=== PATIENT | female | born 1980 | race Caucasian/White ===

== ENCOUNTER 2018-04-27 16:16 | Emergency (ER) | payer BC, OTHER ==
[~2018-04-27] VITALS: Ht 170.2 cm; Wt 97.7 kg
[2018-04-27 16:19] VITALS: Ht 170.2 cm; Wt 97.7 kg
[2018-04-27] MEDS ORDERED: KLONOPIN0.5 MG (16:23)
[2018-04-27] MEDS ORDERED: UNITHROID150 MCG PO (16:24)
[2018-04-27] MEDS ORDERED: BUSPAR5 MG (16:24)
[2018-04-27 17:07] VITALS: BP 114/65
== END 2018-04-27 17:09 | disposition home or self-care (01) ==
LOC: D.ER 16:16
DX: F41.9 Anxiety disorder, unspecified (principal); E03.9 Hypothyroidism, unspecified; F17.200 Nicotine dependence, unspecified, uncomplicated

== ENCOUNTER 2019-10-25 12:52 | Inpatient (IN) | payer MEDICAID ==
[~2019-10-25] VITALS: Ht 170.2 cm; Wt 100.6 kg
[2019-10-25 13:52] LABS: BASOPHILS 0.5 % (0-2); EOSINOPHILS 2.2 % (0-7); HEMATOCRIT 28.6 % (36.0-48.0); HEMOGLOBIN 9.3 g/dL (12-16); IMMATURE GRANULOCYTES 3.8 % (0-5); LYMPHOCYTES 11.9 % (15-50); MCH 27.7 pg (26.0-34.0); MCHC 32.5 g/dL (31.0-37.0); MCV 85.1 fL (80.0-100.0); MEAN PLATELET VOLUME 8.9 fL (7.4-10.4); MONOCYTES 9.3 % (2-11); NEUTROPHILS 72.3 % (40-80); PLATELET COUNT 638 10x3/uL (130-400); RBC 3.36 10x6/uL (4.00-5.40); RDW 16.3 % (11.5-14.5); WBC 12.3 10x3/uL (4.8-10.8)
[2019-10-25 14:08] LABS: CALC OSMOLALITY 273 mosm/kg (275-300); CALCIUM 8.6 mg/dL (8.5-10.1); CARBON DIOXIDE 29.8 mmol/L (21.0-32.0); CHLORIDE - SERUM 101 mmol/L (98-107); CREATININE - SERUM 1.4 mg/dL (0.6-1.3); GLUCOSE 102 mg/dL (74-106); POTASSIUM - SERUM 3.3 mmol/L (3.5-5.1); SODIUM 138 mmol/L (136-145); UREA NITROGEN 8 mg/dL (7-18); eGFR NON AFRICAN AMERICAN 44 mL/min (90-120)
[2019-10-25 14:16] LABS: INR 1.1 (0.85-1.17); PROTIME 14.1 SECONDS (11.6-15.0)
[2019-10-25 14:17] LABS: APTT 32.3 SECONDS (22.8-39.4)
[2019-10-25 14:25] LABS: D-DIMER-QUANTITATIVE 6.61 ug/mLFEU (0.20-0.54)
[2019-10-25 14:26] LABS: ALKALINE PHOSPHATASE 79 U/L (30-120); ALT (SGPT) 11 U/L (10-68); BILIRUBIN - TOTAL 0.37 mg/dL (0.2-1.3); CKMB 1.6 U/L (0.0-3.6); CREATINE KINASE 85 UL (21-215); PRO BNP 4313 pg/mL (0-125); PROTEIN - SERUM 6.9 g/dL (6.4-8.2); TROPONIN-I < 0.017 ng/mL (0.000-0.060)
--- NOTE | 2019-10-25 18:51 | NUR ---
PT ZRRIVED TO FLOOR VIA WHEELCHAIR A/O X4. NO S/S OF DISTRESS. VSS. BED LOW CALL LIGHT WITHIN REACH. WILL CONTINUE TO MONITOR.
--- NOTE | 2019-10-25 19:15 | NUR ---
PATIENT ALERT AND ORIENTED. ANSWERES QUESTIONS APPROPRIATELY. WEARING GLASSES. PERRLA BILATERALLY. REFUSING LOVENOX IN ER. PROVIDED EDUCATION OF IMPORTANCE OF LOVENOX. PATIENT STATES "OKAY I DIDN'T KNOW THAT I WILL START IT TOMORROW." LUNGS CLEAR TO AUSCULTATION. LLQ COLOSTOMY WITH THIN BROWN STOOL IN BAG. HYPERACTIVE BOWEL SOUNDS X 3. PATIENT HAS 22G IV IN THE RIGHT WRIST THAT IS SALINE LOCKED AT THIS TIME. PROVIDED SCD'S PER ORDER. PROVIDED [place] HAT AND INSTRUCTED PATIENT ON NEED OF URINE SAMPLE, PATIENT VERBALIZES UNDERSTANDING. PATIENT HAS MIDLINE INCISION TO ABDOMEN THAT HAS A STAPLE THAT IS MISSING TO LOWER PORTION AND DRESSING THIN WHITE DISCHARGE. PATIENT INCISION LEFT OPEN TO AIR. APPEARS TO BE HEALING WITH SOME REDNESS NOTED AT THE INCISION SITE. PATIENT HAND EXPLOSIVE OPERATOR BOMB STRONG AND EQUAL. FOOT PUMPS STRONG AND EQUAL. PATIENT HAS GENERALIZED EDEMA IN BILATERAL UPPER EXTREMETIES AND 2+ PITTING EDEMA IN THE LOWER EXTREMETIES. PATIENT STATES DURING ASSESSMENT "MY FEET ACTUALLY LOOK SO MUCH BETTER." PATIENT STATES SHE HAS PAIN TO HER BACK AND ABDOMEN. SHE AMBULATES SAFELY BUT REQUIRES PARTIAL ASSISTANCE SHE IS SORE WHEN SITTING UP AT BEDSIDE DUE TO ABDOMINAL INCISION. INSTRUCTED PATIENT ON USE OF PILLOW SPLINTING. PATIENT PROVIDES RETURN DEMONSTRATION. INCENTIVE SPIROMETER PROVIDED TO PATIENT WITH TEACHING ON HOW TO USE EFFECTIVELY AND EDUCATED PATIENT TO USE 10X PER HOUR. PATIENT PROVIEDS RETURN DEMONSTRATION. DENIES FURTHER NEEDS AT THIS TIME. HAS CALL LIGHT IN REACH. CPOC.
[2019-10-25 20:27] LABS: SPECIFIC GRAVITY 1.005 (1.005-1.020)
[2019-10-25 20:28] LABS: BILIRUBIN NEGATIVE (NEGATIVE); GLUCOSE NEGATIVE (NEGATIVE); KETONE NEGATIVE (NEGATIVE); NITRITE NEGATIVE (NEGATIVE); UROBILINOGEN NORMAL (NORMAL)
--- NOTE | 2019-10-25 21:25 | NUR ---
PROVIDED TYLENOL AND ZOFRAN FOR COMPLAINTS OF BACK PAIN. ADMINISTERED SAFELY. PATIENT DENIES FURTHER NEEDS AT THIS TIME. CPOC.
--- NOTE | 2019-10-26 00:50 | NUR ---
PATIENT CRYING WHEN ENTERING THE ROOM. PATIENT STATES PAIN IS TO HER BACK. ASSESSED BLOOD PRESSURE MANUALLY, 117/70. ADMINISTERED MORPHINE TO THE RIGHT WRIST IV. PATIENT TOLERATED WELL. CPOC.
--- NOTE | 2019-10-26 01:32 | NUR ---
PATIENT STATES "I FEEL SO MUCH BETTER." PATIENT NOT CRYING, CALM, EVEN, AND UNLABORED RESPIRATIONS. MORPHINE EFEFECTIVE AT THIS TIME. CPOC.
[2019-10-26 05:03] LABS: EOSINOPHILS 3.6 % (0-7); HEMATOCRIT 27.4 % (36.0-48.0); HEMOGLOBIN 8.6 g/dL (12-16); IMMATURE GRANULOCYTES 4.1 % (0-5); MCH 26.6 pg (26.0-34.0); MCHC 31.4 g/dL (31.0-37.0); MCV 84.8 fL (80.0-100.0); MEAN PLATELET VOLUME 9.6 fL (7.4-10.4); MONOCYTES 12.3 % (2-11); PLATELET COUNT 662 10x3/uL (130-400); RBC 3.23 10x6/uL (4.00-5.40); RDW 16.3 % (11.5-14.5); WBC 10.4 10x3/uL (4.8-10.8)
[2019-10-26 05:47] LABS: ALBUMIN 2.1 g/dL (3.4-5.0); BILIRUBIN - TOTAL 0.33 mg/dL (0.2-1.3); CALCIUM 8.5 mg/dL (8.5-10.1); CARBON DIOXIDE 34.3 mmol/L (21.0-32.0); CREATININE - SERUM 1.4 mg/dL (0.6-1.3); MAGNESIUM - SERUM 1.5 mg/dL (1.8-2.4); PHOSPHOROUS 5.1 mg/dL (2.5-4.9); PROTEIN - SERUM 6.6 g/dL (6.4-8.2)
[2019-10-26 05:48] LABS: ANION GAP 6.5 mmol/L (8-16); POTASSIUM - SERUM 3.8 mmol/L (3.5-5.1); THYROID STIMULATING HORMONE 81.23 uIU/mL (0.36-3.74)
[2019-10-26 17:08] LABS: IRON 60 ug/dl (35-150); UNSAT IRON BIND CAPACITY 94 ug/dl (150-375)
[2019-10-26 17:09] LABS: % SATURATION 39 % (15-55); TOTAL IRON BIND CAPACITY 154 ug/dl (260-445)
--- NOTE | 2019-10-26 19:10 | NUR ---
BEDSIDE REPORT RECEIVED FROM DAY SHIFT, PT CARE ASSUMED. INTRODUCED SELF AND WROTE NAME ON BOARD. PT SITTING UP IN BED TALKING ON THE PHONE, AAOX4. DENIES ANY NEEDS AT THIS TIME. BED IN LOWEST POSITION, SR X2, CALL LIGHT WITHIN REACH. WILL CONTINUE TO MONITOR.
[2019-10-27 06:00] LABS: BASOPHILS 0.6 % (0-2); EOSINOPHILS 3.2 % (0-7); HEMATOCRIT 27.6 % (36.0-48.0); HEMOGLOBIN 8.9 g/dL (12-16); IMMATURE GRANULOCYTES 2.5 % (0-5); LYMPHOCYTES 17.5 % (15-50); MCH 27.3 pg (26.0-34.0); MCHC 32.2 g/dL (31.0-37.0); MCV 84.7 fL (80.0-100.0); MEAN PLATELET VOLUME 9.4 fL (7.4-10.4); MONOCYTES 10.7 % (2-11); NEUTROPHILS 65.5 % (40-80); PLATELET COUNT 662 10x3/uL (130-400); RBC 3.26 10x6/uL (4.00-5.40); RDW 16.4 % (11.5-14.5); WBC 10.9 10x3/uL (4.8-10.8)
[2019-10-27 06:45] LABS: CALCIUM 8.7 mg/dL (8.5-10.1); CARBON DIOXIDE 33.6 mmol/L (21.0-32.0); CREATININE - SERUM 1.2 mg/dL (0.6-1.3); MAGNESIUM - SERUM 1.8 mg/dL (1.8-2.4); PHOSPHOROUS 4.3 mg/dL (2.5-4.9); POTASSIUM - SERUM 3.6 mmol/L (3.5-5.1)
--- NOTE | 2019-10-27 07:57 | NUR ---
PATIENT IS AWAKE AND ALERT. SHE DENIES ANY NEEDS NOW. THIS MORING FIRST THING SHE WAS REQUESTING PAIN MEDICINE. AFTER IT WAS GIVEN , SHE REPORTED RELIEF. WE ARE GOING TO COLLECT SOME STOOL , AND SHE IS AWARE. SHE HAS A COLOSTOMY BAG. THERE IS A LARGE INCISION THAT IS HEALING ON HER ABDOMEN. SHE IS SITTING UP IN BED AND EATTING BREAKFAST.
--- NOTE | 2019-10-27 11:54 | CN ---
PATIENT NAME:NICHO WHITING MEDICAL RECORD: [id number] : 80 LOCATION:D.M2 D.2108 ADMIT DATE: 10/25/19 ACCOUNT: [id number] CONSULTING PHYSICIAN: LITTLE BROWN MD REFERRING PHYSICIAN: SAMANTHA RUBIN DO DATE OF CONSULTATION: 10/26/2019 DIAGNOSES: 1. Lower extremity edema. 2. Recent abdominal surgery. HISTORY OF PRESENT ILLNESS: Mrs. Whiting presents with bilateral lower extremity edema. She recently underwent extensive valve surgery for an abscess, was discharged from our facility 10/23/2019, returned with the lower extremity edema. She had a colostomy and colon resection on 10/09/2019. She has had no shortness of breath, no chest pain, no cardiac problems in the past. PHYSICAL EXAMINATION: CONSTITUTIONAL/GENERAL APPEARANCE: Well nourished, well developed, appears stated age. EYES: Lids and conjunctivae noninjected. No discharge. No pallor. ENT: Lips within normal limit. No cyanosis. No pallor. NECK: Carotid arteries, bilateral normal upstroke. No bruits. No thrills. No jugular venous pressure or distention. CERVICAL LYMPH NODES: Nontender. Nonenlarged. THYROID: Not enlarged. No nodules. CARDIOVASCULAR: She does have a II/ holosystolic murmur at the left substernal border. RESPIRATORY: Respiratory effort, unlabored. Normal curvature. No thoracic deformity. No chest wall tenderness. Percussion, resonant. Auscultation, clear. No wheezes, no rales, no rhonchi. ABDOMEN: Soft, nondistended, nontender. No abdominal pain, no vomiting and normal appetite. MUSCULOSKELETAL: No joint tenderness, normal gait, normal tone. SKIN: Warm and dry. OVERALL IMPRESSION: Lower extremity edema, murmur. At this time, only cardiac workup needed is echocardiogram. Further care depends upon the results of the echocardiogram. TRANSINT:[id number] Voice Confirmation ID: [id number] DOCUMENT ID: [id number] LITTLE BROWN MD at 1154 CC: [id number] DICTATION DATE: 10/26/19 1147 STUDIO COUCH FRAME BUILDER: 10/26/19 1336 [place] [address]
--- NOTE | 2019-10-27 20:50 | NUR ---
EVENING ROUNDS COMPLETED. VSS, AAOX3, NO S/S OF RT DISTRESS. COLOSTOMY BAG INTACT. PT C/O LOWER BACK PAIN. PRN MORPHINE GIVEN. PT RESTING COMFORTABLY IN BED. DENIES ANY FURTHER NEEDS AT THIS TIME. WILL CTM. CL WITHIN REACH, BED IN LOW, SR UP X2.
--- NOTE | 2019-10-28 01:19 | NUR ---
OLD COLOSTOMY BAG REMOVED. STOMA SITE CLEANED. NEW COLOSTOMY BAG PLACED. NORCO GIVEN FOR PAIN ABD PAIN OF 7/10. PT RECIEVING A BED BATH AT THIS TIME. WILL CPOC. CL WITHIN REACH.
[2019-10-28 06:49] LABS: EOSINOPHILS 3.3 % (0-7); HEMATOCRIT 27.8 % (36.0-48.0); HEMOGLOBIN 8.7 g/dL (12-16); IMMATURE GRANULOCYTES 4.1 % (0-5); LYMPHOCYTES 26.7 % (15-50); MCH 26.6 pg (26.0-34.0); MCHC 31.3 g/dL (31.0-37.0); MONOCYTES 10.8 % (2-11); NEUTROPHILS 54.1 % (40-80); PLATELET COUNT 594 10x3/uL (130-400); RBC 3.27 10x6/uL (4.00-5.40); RDW 16.1 % (11.5-14.5); WBC 9.6 10x3/uL (4.8-10.8)
[2019-10-28 07:07] LABS: ANION GAP 6.5 mmol/L (8-16); CALCIUM 8.6 mg/dL (8.5-10.1); CARBON DIOXIDE 31.3 mmol/L (21.0-32.0); CREATININE - SERUM 1.3 mg/dL (0.6-1.3); MAGNESIUM - SERUM 1.6 mg/dL (1.8-2.4); PHOSPHOROUS 3.8 mg/dL (2.5-4.9); POTASSIUM - SERUM 3.8 mmol/L (3.5-5.1)
[2019-10-28 13:43] VITALS: Ht 170.2 cm; Wt 100.6 kg
--- NOTE | 2019-10-28 14:47 | NUR ---
I have reviewed this patient and I concur with the Shift Assessment completed by the Licensed Practical Nurse today this shift.
--- NOTE | 2019-10-28 19:14 | NUR ---
AWAKE AND ALERT NEEDS SEEN TO AT THIS TIME BED IS LOW COLOSTOMYU BAG IS INTACT CALL LIGHT WITH PT INCISION DRY
--- NOTE | 2019-10-29 02:10 | NUR ---
I have reviewed this patient and I concur with the Shift Assessment completed by the Licensed Practical Nurse today this shift.
[2019-10-29 05:18] LABS: BASOPHILS 0.9 % (0-2); EOSINOPHILS 3.1 % (0-7); HEMOGLOBIN 10.2 g/dL (12-16); LYMPHOCYTES 26.6 % (15-50); MCH 27.3 pg (26.0-34.0); MCHC 31.9 g/dL (31.0-37.0); MCV 85.6 fL (80.0-100.0); MEAN PLATELET VOLUME 9.3 fL (7.4-10.4); MONOCYTES 7.9 % (2-11); NEUTROPHILS 57.5 % (40-80); PLATELET COUNT 693 10x3/uL (130-400); RBC 3.74 10x6/uL (4.00-5.40); RDW 16.3 % (11.5-14.5); WBC 11.1 10x3/uL (4.8-10.8)
[2019-10-29 05:51] LABS: ANION GAP 10.4 mmol/L (8-16); CALCIUM 8.7 mg/dL (8.5-10.1); CARBON DIOXIDE 28.3 mmol/L (21.0-32.0); CREATININE - SERUM 1.3 mg/dL (0.6-1.3); MAGNESIUM - SERUM 1.6 mg/dL (1.8-2.4); POTASSIUM - SERUM 3.7 mmol/L (3.5-5.1)
--- NOTE | 2019-10-29 07:53 | NUR ---
PT AMBULATING AROUND ROOM WITH STEADY GAIT. STATES "READY TO GO HOME". DENIES NEEDS OR PAIN AT THIS TIME. RR EVEN AND UNLABORED. ABLE TO REACH CALL LIGHT. BED IN LOWEST POSITION. WILL CONTINUE TO MONITOR.
[2019-10-29 08:33] VITALS: BP 106/52
--- NOTE | 2019-10-29 09:57 | MORECARE ---
CASE MANAGEMENT DISCHARGE SUMMARY PATIENT: NICHO WHITING UNIT: [id number] ADM DATE: 10/25/19 AGE: 39 : 80 SEX: F ROOM/BED: D.2105 AUTHOR: WILLI JAMES PHYSICIAN: REFERRING PHYSICIAN: SAMANTHA RUBIN DO DATE OF SERVICE: 10/29/19 Discharge Plan Patient Name: NICHO WHITING Facility: [facility]:[place] : 1980 Planned Disposition: Home or Self Care Anticipated Discharge Date: Discharge Date: Expected LOS: Initial Reviewer: [email or web address] Initial Review Date: 10/25/2019 Generated: 10/29/19 10:56 am DCPIA - Discharge Planning Initial Assessment Updated by [email or web address]: Rula Kendrick on 10/29/19 9:55 am * Is the patient Alert and Oriented? Yes * How many steps to enter\exit or inside your home? 2/3 * PCP TASHA * Pharmacy [facility] * Preadmission Environment Home with Family * ADLs Independent * Equipment None * List name and contact numbers for known caregivers / representatives who currently or will assist patient after discharge: YUNG DALEY * Verbal permission to speak to the caregivers and representatives has been obtained from the patient. N/A * Community resources currently utilized None * Additional services required to return to the preadmission environment? No * Can the patient safely return to the preadmission environment? Yes * Has this patient been hospitalized within the prior 30 days at any hospital? No Patient Name: NICHO WHITING Page 12604 at 0957 All edits/amendments must be made on the electronic document DICTATION DATE: 10/29/19955 AERODYNAMICS PROFESSOR: CAYDEN 10/29/19955 RPT#: [id number] DC DATE: STATUS: ADM IN [facility] [address] [place] [address] END OF REPORT
--- NOTE | 2019-10-29 10:05 | MORECARE ---
CASE MANAGEMENT DISCHARGE SUMMARY PATIENT: NICHO WHITING UNIT: [id number] ADM DATE: 10/25/19 AGE: 39 : 80 SEX: F ROOM/BED: D.7969 AUTHOR: WILLI JAMES PHYSICIAN: REFERRING PHYSICIAN: SAMANTHA RUBIN DO DATE OF SERVICE: 10/29/19 Discharge Plan Patient Name: NICHO WHITING Facility: [facility]:[place] : 1980 Planned Disposition: Home or Self Care Anticipated Discharge Date: Discharge Date: Expected LOS: Initial Reviewer: [email or web address] Initial Review Date: 10/25/2019 Generated: 10/29/19 11:05 am Comments DCP- Discharge Planning Updated by [email or web address]: Rula Kendrick on 10/29/19 9:[address] Patient Name: NICOH WHITING Admission Status: ER Accout number: [id number] Admission Date: 10-25-2019 : 1980 Admission Diagnosis: Attending: SAMANTHA RUBIN Current LOS: 4 Anticipated DC Date: Planned Disposition: Home or Self Care Primary Insurance: MEDICAID [place] Discharge Planning Comments: CM met with patient to complete initial dc planning assessment. CM educated patient on the CM role and verbal consent given by patient to complete assessment. CM verified patient's address, phone number, and emergency contact phone numbers. Patient lives at home alone. At discharge patient plans to stay with Stacy Ian, a family friend for a week and feels this is a safe discharge. CM discussed availability of home health, rehab services, and medical equipment. Patient denied known discharge needs at this time. Pt has concerns about her medications at dc. States she will not have enough spots to cover her new medications. Called Dr Lynch office and spoke with the nurse. Nurse stated she will facilitate new spots for the patient. Transportation provider at discharge will be Stacy. CM will continue to follow and will assist as needed with dc plans/needs. Product Support Technician: Rula Kendrick DCPIA - Discharge Planning Initial Assessment Updated by [email or web address]: Rula Kendrick on 10/29/19 9:55 am * Is the patient Alert and Oriented? Yes * How many steps to enter\exit or inside your home? 2/3 * PCP TASHA * Pharmacy [facility] ON [address] * Preadmission Environment Home with Family * ADLs Independent * Equipment None * List name and contact numbers for known caregivers / representatives who currently or will assist patient after discharge: STACY DALEY * Verbal permission to speak to the caregivers and representatives has been obtained from the patient. N/A * Community resources currently utilized None * Additional services required to return to the preadmission environment? No * Can the patient safely return to the preadmission environment? Yes * Has this patient been hospitalized within the prior 30 days at any hospital? No Last DP export: 10/29/19 8:57 a Patient Name: NICHO WHITING Page 43940 at 1005 All edits/amendments must be made on the electronic document DICTATION DATE: 10/29/19 100 SANITATION LEAD: CAYDEN 10/29/19 1005 RPT#: [id number] DC DATE: STATUS: ADM IN [facility] [address] [place] [address] END OF REPORT
--- NOTE | 2019-10-29 11:06 | NUR ---
I have reviewed this patient and I concur with the Shift Assessment completed by the Licensed Practical Nurse today this shift.
--- NOTE | 2019-10-29 14:22 | NUR ---
D/C INSTRUCTIONS REVIEWED WITH PT AND FAMILY MEMBER. BOTH VERBALIZED UNDERSTANDING AND DENIES FURTHER QUESTIONS AT THIS TIME. PT LEFT VIA WHEELCHAIR WITH ALL BELONGINGS TO PERSONAL VEHICLE.
--- NOTE | 2019-10-29 14:56 | MORECARE ---
CASE MANAGEMENT DISCHARGE SUMMARY PATIENT: NICHO WHITING UNIT: [id number] ADM DATE: 10/25/19 AGE: 39 : 80 SEX: F ROOM/BED: D.4836 AUTHOR: WILLI JAMES PHYSICIAN: REFERRING PHYSICIAN: SAMANTHA RUBIN DO DATE OF SERVICE: 10/29/19 Discharge Plan Patient Name: NICHO WHITING Facility: [facility]:[place] : 1980 Planned Disposition: Home or Self Care Anticipated Discharge Date: Discharge Date: Expected LOS: Initial Reviewer: [email or web address] Initial Review Date: 10/25/2019 Generated: 10/29/19 3:56 pm Comments DCP- Discharge Planning Updated by [email or web address]: Rula Kendrick on 10/29/19 9:[address] Patient Name: NICHO WHITING Admission Status: ER Accout number: [id number] Admission Date: 10-25-2019 : 1980 Admission Diagnosis: Attending: SAMANTHA RUBIN Current LOS: 4 Anticipated DC Date: Planned Disposition: Home or Self Care Primary Insurance: MEDICAID [place] Discharge Planning Comments: CM met with patient to complete initial dc planning assessment. CM educated patient on the CM role and verbal consent given by patient to complete assessment. CM verified patient's address, phone number, and emergency contact phone numbers. Patient lives at home alone. At discharge patient plans to stay with Stacy Ian, a family friend for a week and feels this is a safe discharge. CM discussed availability of home health, rehab services, and medical equipment. Patient denied known discharge needs at this time. Pt has concerns about her medications at dc. States she will not have enough spots to cover her new medications. Called Dr Lynch office and spoke with the nurse. Nurse stated she will facilitate new spots for the patient. Transportation provider at discharge will be Stacy. CM will continue to follow and will assist as needed with dc plans/needs. Patternmaker Plaster And Plastic: Rula Kendrick DCPIA - Discharge Planning Initial Assessment Updated by [email or web address]: Rula Kendrick on 10/29/19 9:55 am * Is the patient Alert and Oriented? Yes * How many steps to enter\exit or inside your home? 2/3 * PCP TASHA * Pharmacy [facility] ON [address] * Preadmission Environment Home with Family * ADLs Independent * Equipment None * List name and contact numbers for known caregivers / representatives who currently or will assist patient after discharge: STACY DALEY * Verbal permission to speak to the caregivers and representatives has been obtained from the patient. N/A * Community resources currently utilized None * Additional services required to return to the preadmission environment? No * Can the patient safely return to the preadmission environment? Yes * Has this patient been hospitalized within the prior 30 days at any hospital? No Last DP export: 10/29/19 9:05 a Patient Name: NICHO WHITING Page 72729 at 1456 All edits/amendments must be made on the electronic document DICTATION DATE: 10/29/191455 NUMERICAL CONTROL MACHINE MACHINIST: CAYDEN 10/29/191455 RPT#: [id number] DC DATE: STATUS: ADM IN [facility] [address] [place] [address] END OF REPORT
--- NOTE | 2019-10-30 08:31 | MORECARE ---
CASE MANAGEMENT DISCHARGE SUMMARY PATIENT: NICHO WHITING UNIT: [id number] ADM DATE: 10/25/19 AGE: 39 : [birth year] SEX: F ROOM/BED: D.1734 AUTHOR: WILLI JAMES PHYSICIAN: REFERRING PHYSICIAN: SAMANTHA RUBIN DO DATE OF SERVICE: 10/30/19 Discharge Plan Patient Name: NICHO WHITING Facility: [facility]:[place] : 1980 Planned Disposition: Home or Self Care Anticipated Discharge Date: Discharge Date: 10/29/2019 Expected LOS: Initial Reviewer: [email or web address] Initial Review Date: 10/25/2019 Generated: 10/30/19 9:30 am Comments DCP- Discharge Planning Updated by [email or web address]: Rula Kendrick on 10/29/19 9:[address] Patient Name: NICHO WHITING Admission Status: ER Accout number: [id number] Admission Date: 10-25-2019 : 1980 Admission Diagnosis: Attending: SAMANTHA RUBIN Current LOS: 4 Anticipated DC Date: Planned Disposition: Home or Self Care Primary Insurance: MEDICAID [place] Discharge Planning Comments: CM met with patient to complete initial dc planning assessment. CM educated patient on the CM role and verbal consent given by patient to complete assessment. CM verified patient's address, phone number, and emergency contact phone numbers. Patient lives at home alone. At discharge patient plans to stay with Stacy Ian, a family friend for a week and feels this is a safe discharge. CM discussed availability of home health, rehab services, and medical equipment. Patient denied known discharge needs at this time. Pt has concerns about her medications at dc. States she will not have enough spots to cover her new medications. Called Dr Lynch office and spoke with the nurse. Nurse stated she will facilitate new spots for the patient. Transportation provider at discharge will be Stacy. CM will continue to follow and will assist as needed with dc plans/needs. Credit Rating Inspector: Rula Kendrick DCPIA - Discharge Planning Initial Assessment Updated by [email or web address]: Rula Kendrick on 10/29/19 9:55 am * Is the patient Alert and Oriented? Yes * How many steps to enter\exit or inside your home? 2/3 * PCP TASHA * Pharmacy [facility] [address] * Preadmission Environment Home with Family * ADLs Independent * Equipment None * List name and contact numbers for known caregivers / representatives who currently or will assist patient after discharge: STACY DALEY * Verbal permission to speak to the caregivers and representatives has been obtained from the patient. N/A * Community resources currently utilized None * Additional services required to return to the preadmission environment? No * Can the patient safely return to the preadmission environment? Yes * Has this patient been hospitalized within the prior 30 days at any hospital? No Last DP export: 10/29/19 1:56 p Patient Name: NICHO WHITING Page 01982 at 0831 All edits/amendments must be made on the electronic document DICTATION DATE: 10/30/19829 CHANNELER RUNNER: CAYDEN 10/30/19829 RPT#: [id number] DC DATE:10/29/19 STATUS: DIS IN [facility] [address] [place] [address] END OF REPORT
--- NOTE | 2019-10-30 16:48 | EC ---
PATIENT:NICHO WHITING DATE OF SERVICE: 10/25/19 SEX: F MEDICAL RECORD: [id number] DATE OF : [birth year] LOCATION:D.M2 D.210 AGE OF PATIENT: 39 ADMISSION DATE: 10/25/19 REFERRING PHYSICIAN: INTERPRETING PHYSICIAN: LITTLE WELDON MD ECHOCARDIOGRAM REPORT ECHO CHARGES 4 ECHO COMPLETE Date: 10/26/19 CLINICAL DIAGNOSIS: PULMONARY EDEMA ECHOCARDIOGRAPHIC MEASUREMENTS (adult normal given) AC root (d.<3.7cm) 2.4 cm LV Septum d (<1.2 cm> 1.2 cm Valve Excursion 1.8 cm LV Septum (systole) 1.5 cm Left Atria (s.<4.0cm> 4.5 cm LVPW d(<1.2cm) 1.1 cm RV (d.<2.3cm) 2.9 cm LVPW (sytole) 1.7 cm LV diastole(<5.6CM) 4.7 cm MV E-F(>70mm/sec) cm LV systole 2.4 cm LVOT Diameter 1.7 cm MV exc.(>10mm) cm Est.ejection fraction (50-75%) % DOPPLER: LVIT cm/sec A 73.0 cm/sec E 127 cm/sec LA cm/sec RVSP 39.0 mmHg LVOT 91.0 cm/sec AOP1/2T m/s Asc. Ao 190 cm/sec RVOT 54.0 cm/sec RA cm/sec PA 90.0 cm/sec AV Gradient Peak 14.4 mmHg AV Mean 7.6 mmHg AV Area 1.1 cm MV Gradient Peak 7.6 mmHg MV Mean 2.3 mmHg MV Area cm COMMENTS: Secret Code Expert: Michael MARTINEZOE Food Mobile Driver: 1 Dr. Weldon TAPE# PACS Pericardial Effusion N DATE OF SERVICE: 10/27/2019 FINDINGS: 1. Left ventricular chamber size is within normal limits. Left ventricular systolic function is normal at 50%. 2. Left atrium is enlarged at 4.5 cm. Right atrium and right ventricle chamber sizes are as well mildly dilated. 3. Valvular structures have normal structure and motion. 4. Doppler interrogation reveals mild mitral regurgitation, moderate tricuspid regurgitation, no other valvular insufficiency or stenosis. Pulmonary systolic ECHOCARDIOGRAM REPORT [id number] NICHO WHITING pressure is estimated at 39 mmHg. 5. No evidence of pericardial effusion or left ventricular thrombus. TRANSINT:[id number] Voice Confirmation ID: [id number] DOCUMENT ID: [id number] LITTLE WELDON MD at 1648 CC: [id number] DICTATION DATE: 10/27/19 1339 TRUCK DRIVER SUPERVISOR: 10/27/19 1413 DIS IN 10/29/19 [place] [id number] [place] [id number]
== END 2019-10-29 16:29 | disposition home or self-care (01) | DRG 291 ==
LOC: D.ER 12:52 → D.M2 15:38
PROVIDERS: Family Medicine; Internal Medicine Nephrology; ADMIT Family Medicine; ATTEND Family Medicine
DX: I50.9 Heart failure, unspecified (principal); K65.1 Peritoneal abscess; K63.1 Perforation of intestine (nontraumatic); N17.9 Acute kidney failure, unspecified; R60.1 Generalized edema; E03.9 Hypothyroidism, unspecified; E87.6 Hypokalemia; F41.8 Other specified anxiety disorders; D50.9 Iron deficiency anemia, unspecified; Z91.19 Patient's noncompliance with other medical treatment and regimen

== ENCOUNTER → 2019-11-12 20:26 | Outpatient (CLI) | payer MEDICAID ==
[2019-10-28 13:43] VITALS: BMI 35.3
[~2019-11-12 20:26] MED LIST: BUSPAR5 MG; CHANTIX0.5 MG PO; CIPRO500 MG PO; DOXYCYCLINE HY100 M2 PO; FLAGYL500 MG PO; HYDROCODON-ACE1 EA10 PO; KLONOPIN0.5 MG PO; LAMICTAL100 MG PO; Levaquin PO; UNITHROID150 MCG PO
== END | disposition home or self-care (01) ==
LOC: D.LABREF 20:26
PROVIDERS: ATTEND Surgery
DX: K65.1 Peritoneal abscess (principal)

== ENCOUNTER → 2019-12-04 09:15 | Outpatient (CLI) | payer MEDICAID ==
[2019-10-28 13:43] VITALS: BMI 35.3
== END | disposition home or self-care (01) ==
LOC: D.CT 09:00
PROVIDERS: ATTEND Surgery
DX: N73.9 Female pelvic inflammatory disease, unspecified (principal)

== ENCOUNTER 2020-01-19 11:09 | Inpatient (IN) | payer MEDICAID ==
[~2020-01-19] VITALS: Ht 165.1 cm; Wt 90.3 kg
[2020-01-19] MEDS ORDERED: TRAZODONE HCL150 MG (13:19)
[2020-01-19] MEDS ORDERED: CLARITIN 10 MG10 MG PO (13:20)
[2020-01-19] MEDS ORDERED: CELEXA20 MG (13:20)
[2020-01-20 07:31] LABS: BASOPHILS 0.3 % (0-2); EOSINOPHILS 3.9 % (0-7); HEMATOCRIT 37.2 % (36.0-48.0); HEMOGLOBIN 11.3 g/dL (12-16); IMMATURE GRANULOCYTES 0.6 % (0-5); LYMPHOCYTES 29.2 % (15-50); MCH 26.3 pg (26.0-34.0); MCHC 30.4 g/dL (31.0-37.0); MCV 86.5 fL (80.0-100.0); MEAN PLATELET VOLUME 9.5 fL (7.4-10.4); MONOCYTES 6.2 % (2-11); NEUTROPHILS 59.8 % (40-80); RDW 15.1 % (11.5-14.5); WBC 6.4 10x3/uL (4.8-10.8)
[2020-01-20 07:36] LABS: ANION GAP 9.3 mmol/L (8-16); CALCIUM 9.4 mg/dL (8.5-10.1); CREATININE - SERUM 0.9 mg/dL (0.6-1.3); POTASSIUM - SERUM 4.3 mmol/L (3.5-5.1)
[2020-01-20 07:54] LABS: PLATELET COUNT 225 10x3/uL (130-400)
[2020-01-20 08:34] VITALS: BP 110/58; BMI 33.3
[2020-01-20 09:56] LABS: HCG SERUM NEGATIVE (NEGATIVE)
[2020-01-20 16:00] VITALS: BP 127/79
--- NOTE | 2020-01-20 18:00 | NUR ---
RECEIVED PATIENT FROM RECOVERY. ALERT AND ORIENTED. VITALS STABLE. NO C/O PAIN. NO S/S OF ACUTE DISTRESS NOTED. IV TO RIGHT FOREARM, NS INFUSING @ 125ML/HR. SITE PATENT WITHOUT REDNESS OR SWELLING. NG TUBE TO LEFT NARE, ON L/I/S. DRESSING TO ABDOMEN, C/D/I. DENIES ANY NEEDS AT THIS TIME. CALL LIGHT IN REACH. WILL CONTINUE TO MONITOR.
[2020-01-20 20:00] VITALS: BP 103/53
--- NOTE | 2020-01-20 20:00 | NUR ---
PT SITTING UP IN BED WIHTOUT DISTRESS. AOX4. INCISION TO ABD WITH SLIGHT BLOODY DRAINAGE. MARKED WITH BLACK MARKER. IV RIGHT FA INFUSING NS @ 125 WITH DILAUDID SUPERVISOR AIRCRAFT CLEANING. PT STATES SHE IS SORE AND INCISION HANNA. PAIN 11/10. SCDS ON. PROVIDED INCENTIVE SPIROMETER. EDUCATED ON USE, PT DEMONSTRATED CORRECT USE. NGT LEFT NARE TO LIS. NO OUTPUT AT THIS TIME. DENIES OTHER NEEDS. CL IN REACH, WILL CTM
--- NOTE | 2020-01-20 22:00 | NUR ---
PT COMPLAINS OF SORE THROAT. REQUESTING CHLORASEPTIC SPRAY. CALLED DR. ACKERMAN, ORDER RECIEVED FOR SPRAY. PROVIDED SPRAY TO PT. DENIES OTHER NEEDS. WILL CTM
[2020-01-21] VITALS: BP 90/49
--- NOTE | 2020-01-21 | NUR ---
PT AMBULATED X3 LAPS AROUND NURSES STATION WITH SBA, TOLERATED WELL.
--- NOTE | 2020-01-21 02:00 | NUR ---
PT ACCIDENTALLY GOT NGT CAUGHT ON HAND AND PULLED CORRECTION OUT. TUBE BEGAN CHOKING PT IT COILED IN BACK OF THROAT. WHEN THIS NURSE ENTERED ROOM PT WAS GAGGING AND HAD ALREADY VOMITED OVER SELF AND WAS RED IN THE FACE. THIS NURSE PULLED TUBE REST OF THE WAY OUT. PT HAD BLOOD AND EMESIS ALL OVER FRONT OF GOWN. PULLED GOWN UP, BLOOD RUNNING OUT FROM UNDER BORDERED GAUZE DRESSING, COMPLETELY SATURATED. GRABBED 4X4S AND ABD PADS. UPON REMOVING GAUZE, ALL PREETI INTACT, NO ACTIVE BLEEDING. CLEANED AROUND INCISION, PLACED NEW BORDERED GAUZE OVER DRESSING, PLACED 4X4S AND ABD PADS OVER THAT. CALLED DR ACKERMAN, ORDER RECIEVED TO REINSERT NGT
--- NOTE | 2020-01-21 03:00 | NUR ---
16F NGT INSERTED TO RIGHT NARE. PT TOLERATED WELL. STAT KUB ORDERED, NGT IN CORRECT PLACE. CONNECTED TO LIS
[2020-01-21 03:14] VITALS: BMI 33.1
[2020-01-21 04:00] VITALS: BP 90/58
[2020-01-21 04:50] LABS: CALC OSMOLALITY 277 mosm/kg (275-300); CARBON DIOXIDE 24.5 mmol/L (21.0-32.0); CHLORIDE - SERUM 107 mmol/L (98-107); CREATININE - SERUM 0.8 mg/dL (0.6-1.3); GLUCOSE 116 mg/dL (74-106); POTASSIUM - SERUM 4.4 mmol/L (3.5-5.1); SODIUM 139 mmol/L (136-145); UREA NITROGEN 10 mg/dL (7-18); eGFR NON AFRICAN AMERICAN 85 mL/min (90-120)
[2020-01-21 04:59] LABS: BASOPHILS 0.2 % (0-2); EOSINOPHILS 1.5 % (0-7); HEMATOCRIT 37.4 % (36.0-48.0); HEMOGLOBIN 11.3 g/dL (12-16); IMMATURE GRANULOCYTES 0.3 % (0-5); MCH 26.1 pg (26.0-34.0); MCHC 30.2 g/dL (31.0-37.0); MCV 86.4 fL (80.0-100.0); MEAN PLATELET VOLUME 10.2 fL (7.4-10.4); MONOCYTES 5.1 % (2-11); NEUTROPHILS 89.9 % (40-80); PLATELET COUNT 219 10x3/uL (130-400); RBC 4.33 10x6/uL (4.00-5.40); RDW 15.3 % (11.5-14.5)
[2020-01-21 05:01] LABS: WBC 13.2 10x3/uL (4.8-10.8)
[2020-01-21 08:34] VITALS: BP 101/54
[2020-01-21 09:44] VITALS: Ht 165.1 cm; Wt 90.3 kg
--- NOTE | 2020-01-21 11:08 | MORECARE ---
CASE MANAGEMENT DISCHARGE SUMMARY PATIENT: NICHO WHITING UNIT: [id number] ADM DATE: 01/20/20 AGE: 39 : [birth year] SEX: F ROOM/BED: D.2232 AUTHOR: ERIKADOC PHYSICIAN: REFERRING PHYSICIAN: MARIA ALEJANDRA ACKERMAN MD DATE OF SERVICE: 01/21/20 Discharge Plan Patient Name: NICHO WHITING Facility: [facility]:[place] : 1980 Planned Disposition: Anticipated Discharge Date: Discharge Date: Expected LOS: Initial Reviewer: [email or web address] Initial Review Date: 01/21/2020 Generated: 01/21/20 12:08 pm Comments DCP- Discharge Planning Updated by [email or web address]: Vicky King on 01/21/20 10:[address] Patient Name: NICHO WHITING Admission Status: Elective Accout number: [id number] Admission Date: 01-20-2020 : 1980 Admission Diagnosis: Attending: MARIA ALEJANDRA ACKERMAN Current LOS: 1 Anticipated DC Date: Planned Disposition: Primary Insurance: [place] [employer] [place] Discharge Planning Comments: CM met with patient at bedside after explaining CM role and obtaining verbal consent. CM discussed availability / needs of home health, REHAB and medical equipment. PATIENT STATES DOESN'T KNOW IF SHE WILL NEED ANYTHING. STATES IF SHE DOES SHE WOULD LIKE TO USE [facility]. YOHANA SIGNED. CM TO FOLLOW AND ASSIST. Annealer: Vicky King DCPIA - Discharge Planning Initial Assessment Updated by [email or web address]: Vicky King on 01/21/20 11:05 am * Is the patient Alert and Oriented? Yes * PCP TASHA * Pharmacy [facility] * Preadmission Environment Home Alone * ADLs Independent * Additional services required to return to the preadmission environment? No * Can the patient safely return to the preadmission environment? Yes * Has this patient been hospitalized within the prior 30 days at any hospital? No Coverage Notice Reviewer: [id number] - Vicky King Notice Issued Date-Time: 01/21/2020 11:07 Notice Type: Patient Choice Letter Notice Delivered To: Patient Relationship to Patient: Supervisory Training Specialist Name: Delivery Method: HAND - Hand Delivered Kailyn Days: Prior Verbal Notification: Recipient Understood Notice: Yes Recipient Signature: Yes Med Rec Note Co-signed by Attending: Coverage Notice Comment: [facility] IF NEEDED. Patient Name: NICHO WHITING Page 25222 at 1108 All edits/amendments must be made on the electronic document DICTATION DATE: 01/21/201107 HVAC INSTALLATION TECHNICIAN: CAYDEN 01/21/201107 RPT#: [id number] DC DATE: STATUS: ADM IN [facility] [address] [place] [address] END OF REPORT
[2020-01-21 12:59] VITALS: BP 96/55
--- NOTE | 2020-01-21 16:43 | NUR ---
I have reviewed this patient and I concur with the Shift Assessment completed by the Licensed Practical Nurse today this shift.
[2020-01-21 16:55] VITALS: BP 98/62
[2020-01-21 20:00] VITALS: BP 112/56
--- NOTE | 2020-01-21 20:00 | NUR ---
PT SITTING UP IN BED WITHOUT DISTRESS, AOX4. IV RIGHT FA INFUSING NS @ 125. CABA IN PLACE. NGT TO RIGHT NARE TO LIS. PT STATES NO PAIN AT THIS TIME. ML INCISION, DRESSING WITH OLD BLOODY DRAINAGE ON IT. PT DISCONNECTED FROM SUCTION FOR A FEW MINUTES TO MAKE LAPS AROUND NURSES STATION WITH MOTHER ASSISTING AND RECONNECTED ONCE BACK IN ROOM. PT ASKING FOR POPSICLES. INFORMED PT PER DR ACKERMAN SHE COULD HAVE ICE CHIPS ONLY. VERBALIZED UNDERSTANDING. PROVIDED ICE CHIPS. DENIES OTHER NEEDS. CL IN REACH, WILL CTM
[2020-01-22] VITALS: BP 102/55
--- NOTE | 2020-01-22 01:00 | NUR ---
PT UNABLE TO SLEEP, STATES SORE THROAT IS KEEPING HER AWAKE. AMBULATED 3 LAPS AROUND NURSES STATION. WHEN GETTING BACK IN BED PT STATED SHE WAS USING PILLOW TO SUPPORT ABD BUT STILL FELT A BURNING PAIN NEAR UMBILICAL AREA. STATE SOMETHING FELT WEIRD UNDER DRESSING. REMOVED REINFORCED 4X4 AND ABD PADS FROM OVER BORDERED GAUZE DRESSING. 4X4 HAS ROLLED UP UNDERNESS ABD PAD AND WAS PRESSING ON UMBILICAL AREA. PT STATES IT FELT BETTER AFTER REMOVING. PLACED NEW 4X4S AND ABD PAD OVER BORDERED DRESSING. DENIES OTHER NEEDS AT THIS TIME
[2020-01-22 04:00] VITALS: BP 107/64
--- NOTE | 2020-01-22 05:45 | NUR ---
NGT STARTED DRAINING RED THIN LIQUID WITH SMALL DARK COFFEE GROUND CLOTS. CALLED DR MIGUEL. ORDERS TO CHANGE PROTONIX IV TO BID AND ORDER CBC AND BMP
--- NOTE | 2020-01-22 07:15 | NUR ---
REC'D IN BED AWAKE AND ALERT. RESP EVEN AND UNLABORED WITH NO DISTRESS NOTED. HAS NG TUBE TO LEFT NARE TO LWIS. NO C/O NOTED OR VOICED. DENIES ANY PAIN OR DISCOMFORT AT THIS TIME. PT AMBULATE AROUND NURSING STATION WITH SLOW AND STEADY GAIT. ASSESSMEMT COMPLETED. C/L IN REACH AT BEDSIDE.
[2020-01-22 07:37] LABS: BASOPHILS 0.1 % (0-2); EOSINOPHILS 3.5 % (0-7); IMMATURE GRANULOCYTES 0.6 % (0-5); LYMPHOCYTES 7.9 % (15-50); MCH 25.9 pg (26.0-34.0); MCHC 29.8 g/dL (31.0-37.0); MCV 86.9 fL (80.0-100.0); MEAN PLATELET VOLUME 9.8 fL (7.4-10.4); MONOCYTES 7.2 % (2-11); NEUTROPHILS 80.7 % (40-80); PLATELET COUNT 215 10x3/uL (130-400); RDW 15.7 % (11.5-14.5); WBC 14.1 10x3/uL (4.8-10.8)
[2020-01-22 07:39] LABS: CALC OSMOLALITY 269 mosm/kg (275-300); CALCIUM 7.7 mg/dL (8.5-10.1); CARBON DIOXIDE 24.9 mmol/L (21.0-32.0); CHLORIDE - SERUM 107 mmol/L (98-107); CREATININE - SERUM 0.6 mg/dL (0.6-1.3); GLUCOSE 87 mg/dL (74-106); SODIUM 136 mmol/L (136-145); UREA NITROGEN 9 mg/dL (7-18); eGFR NON AFRICAN AMERICAN > 90 mL/min (90-120)
[2020-01-22 07:42] LABS: POTASSIUM - SERUM 3.5 mmol/L (3.5-5.1)
[2020-01-22 07:53] LABS: HEMATOCRIT 29.9 % (36.0-48.0); HEMOGLOBIN 8.9 g/dL (12-16); RBC 3.44 10x6/uL (4.00-5.40)
[2020-01-22 09:00] VITALS: BP 113/52
--- NOTE | 2020-01-22 10:36 | NUR ---
CABA CATH DC AT THIS TIME WITH 600 CC NOTED TO COLLECTION DEVICE.
--- NOTE | 2020-01-22 13:14 | NUR ---
I have reviewed this patient and I concur with the Shift Assessment completed by the Licensed Practical Nurse today this shift.
[2020-01-22 13:20] VITALS: BP 108/56
--- NOTE | 2020-01-22 13:58 | OP ---
PATIENT NAME: NICHO WHITING MEDICAL RECORD: [id number] :80 LOCATION:D.[id number] ADMISSION DATE:01/20/20 SURGEON: MARIA ALEJANDRA ACKERMAN MD DATE OF OPERATION: 01/20/2020 PREOPERATIVE DIAGNOSES: 1. Colostomy present. 2. History of pelvic abscess status post partial colectomy. 3. Left ovarian cyst. POSTOPERATIVE DIAGNOSES: 1. Colostomy present. 2. History of pelvic abscess status post partial colectomy. 3. Left ovarian cyst. PROCEDURE: 1. Colostomy reversal. 2. Extensive lysis of adhesions. 3. Mobilization of splenic flexure. SURGEON: Maria Alejandra Ackerman MD REPORT OF PROCEDURE: The patient's abdomen was prepped and draped in sterile fashion. A skin incision was made in the midline and electrocautery was used to dissect through the subcutaneous tissue. There was a lot of inflammatory changes still present from the previous surgery. We used electrocautery to dissect through these until we finally penetrated the fascia and entered the abdominal cavity. The patient was immediately noted to have a large amount of adhesions of the small bowel to the anterior abdominal wall. They were still inflamed. A tedious dissection was performed of the small bowel off the anterior abdominal wall. Once we had it off the anterior abdominal wall, then there were adhesions present of the small bowel onto itself. We took down all these adhesions until we had good mobilization of the small bowel. We mobilized the adhesions off of the cecum on the patient's right colon and we were able to get down to the pelvis, which was solid with large amount of inflammatory changes. A Prolene suture had been placed on the rectal stump of the previous surgery and this was visualized. We were able to dissect down around this and eventually get around the rectum and into the pelvis. We were able to dissect about 4-5 cm down into the pelvis around the rectal tissue. While doing this, the left ovarian cyst was penetrated. Dr. Walsh came and evaluated this. The fluid was clear and straw-colored with no sign of purulence and no sign of blood. He elected just to leave this alone. We then took down the ostomy, which was present in the patient's left upper quadrant by taking down a nisqually of the tissue and skin around this using electrocautery. We continued this dissection through the subcutaneous tissues down to the fascia and then took down the adhesions to the fascia. Once these adhesions were taken down, we eviscerated the ostomy back into the abdominal cavity, mobilized the patient's splenic flexure by taking down the splenocolic attachments using blunt dissection. This allowed us to have more easy mobilization of the patient's left colon. We then transected the colon using electrocautery and took down the mesentery using a clamp and tie technique with 3-0 silks. A 2-0 Prolene was used as a pursestring and this distal descending colon and a 29 EEA anvil was inserted and the pursestring was tied down tightly. We then placed the multiple anorectal dilators up through the anus and rectum to the staple line. We were able to pass all of these with ease and eventually passed the EEA stapler. We OPERATIVE REPORT [id number] NICHO WHITING fired the stapler and at the conclusion of this, there was a large hole present on the right side of the anastomosis. I could not differentiate the tissue very well, so I did not feel comfortable just placing some stitches. I went ahead and just took down the anastomosis at this point. This was done using Jauregui scissors. We then placed another 2-0 Prolene in a pursestring on the distal end of the colon and placed a 29 EEA anvil. The open end of the rectum was then peeled back and we reapproximated this transversely using a running 2-0 Vicryl. We then again inserted the 29 EEA stapler. We were able to fire the stapler and at the conclusion of this, we had one complete ring of tissue and the other one was divided. We then instilled air through the rectum and there was a lot of bubbling coming posteriorly from the anastomotic site. I went ahead and just took this anastomosis down as well as the tissue just appeared to be abnormal. As I took this down, it appeared that the stapler actually misfired internally as there was a small ring of elliott present on the inner lining of the mucosa of the rectum, but it was not very well adherent to the actual staple line, the anastomotic site. I went ahead and cleaned off the edges of the proximal rectum and the distal colon, and performed an end-to-end anastomosis using an inner layer of running 3-0 Vicryl and an outer layer of Lemberted 3-0 silks. There was good approximation of the tissue and we instilled air through the rectum as we checked this anastomosis under water and there was no sign of any leak present. There did not appear to be any significant tension on the anastomosis. There was some fatty tissue nearby, which I draped over the anastomotic site. We then irrigated out the abdomen thoroughly with normal saline and made sure there was no sign of any active bleeding. The ostomy site fascia was then closed longitudinally with multiple interrupted 0 Prolenes. The subcutaneous tissues were reapproximated with a pursestring 3-0 Vicryl and the skin was closed with a pursestring 2-0 Vicryl. This was packed with a piece of Telfa and then dressed appropriately. The midline fascia was then reapproximated with running #1 loop PDS times 2. The subcutaneous tissues were reapproximated with interrupted 3-0 Vicryl and the skin incision was closed with elliott. COMPLICATIONS: None. CONDITION: Stable. ANESTHESIA: General endotracheal. BLOOD LOSS: 250 mL. TRANSINT:[id number] Voice Confirmation ID: [id number] DOCUMENT ID: [id number] MARIA ALEJANDRA ACKERMAN MD at 1358 CC: [id number] DICTATION DATE: 01/20/20 170 FINISHED GOODS PLANNER: 01/21/20 0253 [facility] IN [facility] [address] [id number]
[2020-01-22 16:00] VITALS: BP 103/56
--- NOTE | 2020-01-22 19:40 | NUR ---
22G IV SITED TO LEFT FA X1 ATTEMPT
[2020-01-22 20:00] VITALS: BP 120/68
--- NOTE | 2020-01-22 20:00 | NUR ---
PT PULLED NGT OUT ACCIDENTALLY. CALLED DR ACKERMAN, ORDERS TO LEAVE IT OUT, NO POPSICLES BUT COULD STILL HAVE ICE CHIPS, AND ORDER CATHIE FOR AM.
[2020-01-23] VITALS: BP 115/66
--- NOTE | 2020-01-23 03:00 | NUR ---
IV INFILTRATED TO LEFT FA, REMOVED WITH CATHETER INTACT. SITED 22G IV TO LEFT HAND X1 ATTEMPT
--- NOTE | 2020-01-23 03:30 | NUR ---
PT AMBULATED 3 LAPS AROUND NURSES STATION WITH ABD BINDER ON
[2020-01-23 04:00] VITALS: BP 109/63
[2020-01-23 05:30] LABS: CALC OSMOLALITY 266 mosm/kg (275-300); CALCIUM 8.3 mg/dL (8.5-10.1); CARBON DIOXIDE 25.9 mmol/L (21.0-32.0); CHLORIDE - SERUM 103 mmol/L (98-107); GLUCOSE 96 mg/dL (74-106); POTASSIUM - SERUM 3.3 mmol/L (3.5-5.1); SODIUM 134 mmol/L (136-145); UREA NITROGEN 9 mg/dL (7-18); eGFR NON AFRICAN AMERICAN 85 mL/min (90-120)
[2020-01-23 05:34] LABS: BASOPHILS 0.1 % (0-2); CREATININE - SERUM 0.8 mg/dL (0.6-1.3); EOSINOPHILS 3.8 % (0-7); HEMATOCRIT 28.9 % (36.0-48.0); HEMOGLOBIN 8.7 g/dL (12-16); IMMATURE GRANULOCYTES 1.5 % (0-5); LYMPHOCYTES 11.7 % (15-50); MCH 26.2 pg (26.0-34.0); MCHC 30.1 g/dL (31.0-37.0); MEAN PLATELET VOLUME 10.3 fL (7.4-10.4); MONOCYTES 7.2 % (2-11); NEUTROPHILS 75.7 % (40-80); PLATELET COUNT 249 10x3/uL (130-400); RBC 3.32 10x6/uL (4.00-5.40); RDW 15.6 % (11.5-14.5)
[2020-01-23 08:00] VITALS: BP 99/59
[2020-01-23 09:49] LABS: ALBUMIN 2.4 g/dL (3.4-5.0); BILIRUBIN - DIRECT 0.15 mg/dL (0.00-0.30); BILIRUBIN - INDIRECT 0.32 mg/dL (0.00-1.00); BILIRUBIN - TOTAL 0.47 mg/dL (0.2-1.3); PROTEIN - SERUM 5.6 g/dL (6.4-8.2)
[2020-01-23 12:00] VITALS: BP 101/63
--- NOTE | 2020-01-23 13:12 | NUR ---
Nutrition follow-up: Pts diet advanced to clear liquids; pt pulled out NGT. Walking in hallway ProcalAmine PPN infusing @ 125 ml/hr Labs reviewed Wt: 199# RDN following.
--- NOTE | 2020-01-23 13:43 | NUR ---
PT SITTING UP ON SIDE OF BED, ALERT AND ORIENTED. IV TO LEFT HAND RUNNING PROCAL @ 125ML, NS @ 10ML, DILAUDID BOX SPRING FRAME BUILDER PRESENT. NO S/S OF DISTRESS AT THIS TIME, DENIES NEEDS, WILL CONT TO MONITOR.
--- NOTE | 2020-01-23 15:00 | NUR ---
DRESSING TO ABDOMEN CHANGED/PACKED PER DR.S ORDERS.
[2020-01-23 16:00] VITALS: BP 99/51
[2020-01-23 16:26] LABS: BILIRUBIN NEGATIVE (NEGATIVE); GLUCOSE NEGATIVE (NEGATIVE); KETONE NEGATIVE (NEGATIVE); NITRITE NEGATIVE (NEGATIVE); UROBILINOGEN NORMAL (NORMAL)
[2020-01-23 20:00] VITALS: BP 104/55
[2020-01-24] VITALS: BP 110/58
[2020-01-24 04:00] VITALS: BP 118/62
[2020-01-24 06:22] LABS: BASOPHILS 0.2 % (0-2); EOSINOPHILS 5.6 % (0-7); HEMATOCRIT 28.1 % (36.0-48.0); HEMOGLOBIN 8.5 g/dL (12-16); IMMATURE GRANULOCYTES 2.5 % (0-5); LYMPHOCYTES 19.1 % (15-50); MCH 26.1 pg (26.0-34.0); MCHC 30.2 g/dL (31.0-37.0); MCV 86.2 fL (80.0-100.0); NEUTROPHILS 65.6 % (40-80); PLATELET COUNT 254 10x3/uL (130-400); RBC 3.26 10x6/uL (4.00-5.40); RDW 15.2 % (11.5-14.5)
[2020-01-24 06:54] LABS: ALBUMIN 2.4 g/dL (3.4-5.0); ALKALINE PHOSPHATASE 87 U/L (30-120); ALT (SGPT) 22 U/L (10-68); CALC OSMOLALITY 270 mosm/kg (275-300); CALCIUM 8.3 mg/dL (8.5-10.1); CARBON DIOXIDE 28.1 mmol/L (21.0-32.0); CHLORIDE - SERUM 102 mmol/L (98-107); CREATININE - SERUM 0.7 mg/dL (0.6-1.3); GLUCOSE 91 mg/dL (74-106); PROTEIN - SERUM 6.4 g/dL (6.4-8.2); SODIUM 136 mmol/L (136-145); UREA NITROGEN 11 mg/dL (7-18); eGFR NON AFRICAN AMERICAN > 90 mL/min (90-120)
[2020-01-24 06:55] LABS: POTASSIUM - SERUM 3.9 mmol/L (3.5-5.1)
[2020-01-24 08:00] VITALS: BP 104/65
--- NOTE | 2020-01-24 08:00 | NUR ---
PATIENT A/O LAYING IN BED. NO NEEDS AT TIME TIME. CL IN REACH. WCTM
[2020-01-24 12:00] VITALS: BP 118/59
[2020-01-24 15:52] VITALS: BP 108/75
[2020-01-24 20:00] VITALS: BP 121/65
[2020-01-25 00:10] VITALS: BP 128/72
--- NOTE | 2020-01-25 00:41 | NUR ---
PT'S IV HAS BEEN OUT SINCE BEFORE SHIFT CHANGE. SEVERAL NURSES HAVE ATTEMPTED UNSUCCESSFULLY TO RESITE IV. WAITING ON VASCULAR NURSE FROM ER TO COME TRY TO RESITE. PT'S RATES PAIN AND ANXIETY 06/12. PAGED DR. MIGUEL. ORDER TO D/C WATER TECHNICIAN.GAVE 2 TABS NORCO-5 AND ATIVAN 1 MG PO PER TELEPHONE ORDER. NO OTHER NEEDS. WILL REASSESS AND CONTINUE TO MONITOR.
[2020-01-25 05:16] VITALS: BP 130/75
[2020-01-25 05:20] LABS: BASOPHILS 0.3 % (0-2); EOSINOPHILS 4.5 % (0-7); HEMATOCRIT 27.4 % (36.0-48.0); HEMOGLOBIN 8.4 g/dL (12-16); LYMPHOCYTES 17.5 % (15-50); MCH 25.9 pg (26.0-34.0); MCHC 30.7 g/dL (31.0-37.0); MCV 84.6 fL (80.0-100.0); MEAN PLATELET VOLUME 9.8 fL (7.4-10.4); NEUTROPHILS 64.7 % (40-80); RBC 3.24 10x6/uL (4.00-5.40); RDW 15.4 % (11.5-14.5)
[2020-01-25 05:28] LABS: PLATELET COUNT 345 10x3/uL (130-400); WBC 7.8 10x3/uL (4.8-10.8)
[2020-01-25 05:39] LABS: ALBUMIN 2.3 g/dL (3.4-5.0); ALKALINE PHOSPHATASE 83 U/L (30-120); ALT (SGPT) 18 U/L (10-68); BILIRUBIN - TOTAL 0.28 mg/dL (0.2-1.3); CALC OSMOLALITY 275 mosm/kg (275-300); CALCIUM 8.3 mg/dL (8.5-10.1); CARBON DIOXIDE 29.3 mmol/L (21.0-32.0); CHLORIDE - SERUM 104 mmol/L (98-107); CREATININE - SERUM 0.6 mg/dL (0.6-1.3); GLUCOSE 95 mg/dL (74-106); POTASSIUM - SERUM 3.3 mmol/L (3.5-5.1); PROTEIN - SERUM 6.1 g/dL (6.4-8.2); SODIUM 139 mmol/L (136-145); UREA NITROGEN 6 mg/dL (7-18); eGFR NON AFRICAN AMERICAN > 90 mL/min (90-120)
[2020-01-25 08:00] VITALS: BP 113/75
--- NOTE | 2020-01-25 08:35 | NUR ---
PATIENT AWAKE. REQUESTED AND RECIEVED COTTAGE CHEESE FOR BREAKFAST. SOME YELLOW DISCOLORATION ON BANDAGE OVER THE COLOSTOMY SITE. STATES PAIN IS A 5 OUT OF 10. WILL COVER WITH MORNING MEDS. STATES SHE DOESN'T NEED THE MORNING ATIVAN. CL IN REACH. WCTM
[2020-01-25 12:00] VITALS: BP 119/59
--- NOTE | 2020-01-25 15:53 | NUR ---
IV THERAPY INFILTRATED IN RIGHT FOREARM. REMOVED WITH TIP INTACT. DR MYRIAM RUANO. STATED HE WOULD DISCONTINUE THE FLUIDS. DRESSING CHANGED. WELL APPROXIMATED PREETI AND PAINTED WITH BETADINE. CL IN REACH. WCTM
[2020-01-25 16:00] VITALS: BP 120/67
[2020-01-25 19:40] VITALS: BP 113/63
[2020-01-26 00:51] VITALS: BP 108/67
[2020-01-26 04:00] VITALS: BP 103/56
[2020-01-26 06:15] LABS: BASOPHILS 0.3 % (0-2); EOSINOPHILS 4.5 % (0-7); HEMATOCRIT 26.8 % (36.0-48.0); LYMPHOCYTES 24.7 % (15-50); MCH 25.5 pg (26.0-34.0); MCHC 29.9 g/dL (31.0-37.0); MCV 85.4 fL (80.0-100.0); MEAN PLATELET VOLUME 9.7 fL (7.4-10.4); MONOCYTES 11.6 % (2-11); NEUTROPHILS 52.9 % (40-80); PLATELET COUNT 378 10x3/uL (130-400); RBC 3.14 10x6/uL (4.00-5.40); RDW 15.7 % (11.5-14.5); WBC 7.3 10x3/uL (4.8-10.8)
[2020-01-26 06:34] LABS: ALBUMIN 2.2 g/dL (3.4-5.0); ALKALINE PHOSPHATASE 86 U/L (30-120); BILIRUBIN - TOTAL 0.21 mg/dL (0.2-1.3); CALCIUM 8.2 mg/dL (8.5-10.1); CARBON DIOXIDE 28.4 mmol/L (21.0-32.0); CHLORIDE - SERUM 106 mmol/L (98-107); CREATININE - SERUM 0.6 mg/dL (0.6-1.3); GLUCOSE 89 mg/dL (74-106); POTASSIUM - SERUM 3.4 mmol/L (3.5-5.1); PROTEIN - SERUM 5.5 g/dL (6.4-8.2); SODIUM 141 mmol/L (136-145); eGFR NON AFRICAN AMERICAN > 90 mL/min (90-120)
[2020-01-26 06:36] LABS: ALT (SGPT) 13 U/L (10-68); CALC OSMOLALITY 276 mosm/kg (275-300); UREA NITROGEN 4 mg/dL (7-18)
--- NOTE | 2020-01-26 07:41 | NUR ---
PT AWAKE AND ORIENTED LYING IN BED. STATES SHE HAD SEVERAL LOOSE BMS THROUGHOUT THE NIGHT. NO COMPLAINTS OR CONCERNS AT THIS TIME. CL INR EACH, SX2, ALL QUESTIONS ANSWERED TO THE BEST OF MY ABILITY.
[2020-01-26 09:00] VITALS: BP 107/67
--- NOTE | 2020-01-26 09:33 | NUR ---
PT RESTING COMFORTABLY, WOKE EASILY WHEN I ENTERED ROOM, TOOK MEDICATIONS WITHOUT COMPLICATIONS. C/O 02/10 ABD PAIN, ADMINISTERED MEDICATIONS.NO COMPLAINTS OR CONCERNS AT THIS TIME, ALL QUESTIONS ANSWERED TO THE BEST OF MY ABILITY. CL IN REACH, SRX2.
--- NOTE | 2020-01-26 11:55 | NUR ---
PT C/O BURNING PAIN ALONG INCISION LINE, DOES NOT APPEAR TO BE ANYTHING OBVIOUSLY WRONG, EXPLAINED THAT IT'S LKELY PART OF THE HEALING PROCESS. NO FURTHER QUESTIONS. CL IN REACH, SRX2,
[2020-01-26 12:40] VITALS: BP 105/67
--- NOTE | 2020-01-26 15:01 | NUR ---
PT AWAKE AND ORIENTED, LYING ON BED WATCHING TV. NO COMPLAINTS OR CONCERNS AT THIS TIME, GAVE PAIN MEDS FOR ABD PAIN.C L IN REACH,SRX2.
[2020-01-26 17:10] VITALS: BP 108/67
--- NOTE | 2020-01-26 20:05 | NUR ---
LYING IN BED. ALERT AND ORIENTED X4. RESP EVEN AND NONLABORED. REPORTS PAIN IN RT HIP 5. MEDICCATED WITH NORCO ORDERED. NO IV ACCESS. DSRG TO ABD IS C/D/I. ABD BINDER IN USE. AMBULATORY. SR ELEVATED X2. CL IN REACH. NO DISTRESS.
[2020-01-26 20:45] VITALS: BP 115/56
--- NOTE | 2020-01-27 00:25 | NUR ---
MEDICATED WITH NORCO FOR C/O ABD PAIN. CL IN REACH.
--- NOTE | 2020-01-27 04:36 | NUR ---
MEDICATED WITH NORCO FOR C/O ABD PAIN RATING 5. CL IN REACH.
[2020-01-27 05:14] LABS: BASOPHILS 0.5 % (0-2); EOSINOPHILS 4.4 % (0-7); HEMATOCRIT 27.5 % (36.0-48.0); HEMOGLOBIN 8.4 g/dL (12-16); IMMATURE GRANULOCYTES 7.3 % (0-5); LYMPHOCYTES 29.5 % (15-50); MCH 26.1 pg (26.0-34.0); MCHC 30.5 g/dL (31.0-37.0); MCV 85.4 fL (80.0-100.0); MEAN PLATELET VOLUME 9.2 fL (7.4-10.4); MONOCYTES 7.9 % (2-11); NEUTROPHILS 50.4 % (40-80); PLATELET COUNT 384 10x3/uL (130-400); RBC 3.22 10x6/uL (4.00-5.40); RDW 15.6 % (11.5-14.5); WBC 8.8 10x3/uL (4.8-10.8)
[2020-01-27 05:27] VITALS: BP 98/58
[2020-01-27 05:36] LABS: ALBUMIN 2.3 g/dL (3.4-5.0); ALKALINE PHOSPHATASE 87 U/L (30-120); ALT (SGPT) 11 U/L (10-68); BILIRUBIN - TOTAL 0.18 mg/dL (0.2-1.3); CALC OSMOLALITY 272 mosm/kg (275-300); CALCIUM 8.5 mg/dL (8.5-10.1); CARBON DIOXIDE 31.3 mmol/L (21.0-32.0); CHLORIDE - SERUM 103 mmol/L (98-107); CREATININE - SERUM 0.7 mg/dL (0.6-1.3); GLUCOSE 86 mg/dL (74-106); POTASSIUM - SERUM 3.5 mmol/L (3.5-5.1); PROTEIN - SERUM 6.3 g/dL (6.4-8.2); SODIUM 138 mmol/L (136-145); eGFR NON AFRICAN AMERICAN > 90 mL/min (90-120)
[2020-01-27 05:45] LABS: UREA NITROGEN 6 mg/dL (7-18)
[2020-01-27 08:08] VITALS: BP 102/55
[2020-01-27] MEDS ORDERED: HYDROCODON-ACE1 EA10 PO (08:25)
--- NOTE | 2020-01-27 09:23 | MORECARE ---
CASE MANAGEMENT DISCHARGE SUMMARY PATIENT: NICHO WHITING UNIT: [id number] ADM DATE: 01/20/20 AGE: 39 : [birth year] SEX: F ROOM/BED: D.2232 AUTHOR: WILLI JAMES PHYSICIAN: REFERRING PHYSICIAN: MARIA ALEJANDRA ACKERMAN MD DATE OF SERVICE: 01/27/20 Discharge Plan Patient Name: NICHO WHITING Facility: [facility]:[place] : 1980 Planned Disposition: Anticipated Discharge Date: Discharge Date: Expected LOS: Initial Reviewer: [email or web address] Initial Review Date: 01/21/2020 Generated: 01/27/20 10:22 am DCP- Discharge Planning Updated by [email or web address]: Vicky King on 01/21/20 10:[address] Patient Name: NICHO WHITING Admission Status: Elective Accout number: [id number] Admission Date: 01-20-2020 : 1980 Admission Diagnosis: Attending: MARIA ALEJANDRA ACKERMAN Current LOS: 1 Anticipated DC Date: Planned Disposition: [place] [employer] [place] Discharge Planning Comments: CM met with patient at bedside after explaining CM role and obtaining verbal consent. CM discussed availability / needs of home health, REHAB and medical equipment. PATIENT STATES DOESN'T KNOW IF SHE WILL NEED ANYTHING. STATES IF SHE DOES SHE WOULD LIKE TO USE [facility]. YOHANA SIGNED. CM TO FOLLOW AND ASSIST. Transfer Operator: Vicky King DCPIA - Discharge Planning Initial Assessment Updated by [email or web address]: Vicky King on 01/21/20 11:05 am * Is the patient Alert and Oriented? Yes * PCP TASHA * Pharmacy [facility] * Preadmission Environment Home Alone * ADLs Independent * Additional services required to return to the preadmission environment? No * Can the patient safely return to the preadmission environment? Yes * Has this patient been hospitalized within the prior 30 days at any hospital? No External Providers External Provider: [facility] Contact Date: Service Request Date: Service Type: Resolution: Reviewer: Comments: Coverage Notice Reviewer: [id number] - Vicky King Notice Issued Date-Time: 01/21/2020 11:07 Notice Type: Patient Choice Letter Notice Delivered To: Patient Relationship to Patient: Emergency Service Worker Name: Delivery Method: HAND - Hand Delivered Kailyn Days: Prior Verbal Notification: Recipient Understood Notice: Yes Recipient Signature: Yes Med Rec Note Co-signed by Attending: Coverage Notice Comment: [facility] JOHNS IF NEEDED. Last DP export: 01/21/20 10:08 a Patient Name: NICHO WHITING Page [phone] at 0923 All edits/amendments must be made on the electronic document DICTATION DATE: 01/27/20921 UNEMPLOYMENT BENEFITS CLAIMS TAKER: CAYDEN 01/27/20921 RPT#: [id number] DC DATE: STATUS: ADM IN [facility] [address] [place] [address] END OF REPORT
--- NOTE | 2020-01-27 09:29 | MORECARE ---
CASE MANAGEMENT DISCHARGE SUMMARY PATIENT: NICHO WHITING UNIT: [id number] ADM DATE: 01/20/20 AGE: 39 : 80 SEX: F ROOM/BED: D.2232 AUTHOR: ERIKA,DOC PHYSICIAN: REFERRING PHYSICIAN: MARIA ALEJANDRA ACKERMAN MD DATE OF SERVICE: 01/27/20 Discharge Plan Patient Name: NICHO WHITING Facility: [facility]:[place] : 1980 Planned Disposition: Anticipated Discharge Date: Discharge Date: Expected LOS: Initial Reviewer: [email or web address] Initial Review Date: 01/21/2020 Generated: 01/27/20 10:29 am Comments DCP- Discharge Planning Updated by [email or web address]: Vicky King on 01/27/20 8:[address] Patient Name: NICHO WHITING Admission Status: Elective Accout number: [id number] Admission Date: 01-20-2020 : 1980 Admission Diagnosis:ENCOUNTER FOR ATTENTION TO COLOSTOMY Attending: MARIA ALEJANDRA ACKERMAN Current LOS: 7 Anticipated DC Date: Planned Disposition: Primary Insurance: [place] [employer] [place] Discharge Planning Comments: [facility] CONTACTED AND REFERRAL FAXED. WAITING CALL BACK ON START DATE. CM TO FOLLOW AND ASSIST NEEDED. Kayak Maker: Vicky King DCP- Discharge Planning Updated by [email or web address]: Vicky King on 01/21/20 10:[address] Patient Name: NICHO WHITING Admission Status: Elective Accout number: [id number] Admission Date: 01-20-2020 : 1980 Admission Diagnosis: Attending: MARIA ALEJANDRA ACKERMAN Current LOS: 1 Anticipated DC Date: Planned Disposition: Primary Insurance: [employer] [place] [employer] Discharge Planning Comments: CM met with patient at bedside after explaining CM role and obtaining verbal consent. CM discussed availability / needs of home health, REHAB and medical equipment. PATIENT STATES DOESN'T KNOW IF SHE WILL NEED ANYTHING. STATES IF SHE DOES SHE WOULD LIKE TO USE [facility] . YOHANA SIGNED. CM TO FOLLOW AND ASSIST. Kayak Maker: Vicky King DCPIA - Discharge Planning Initial Assessment Updated by [email or web address]: Vicky King on 01/21/20 11:05 am * Is the patient Alert and Oriented? Yes * PCP TASHA * Pharmacy [facility] * Preadmission Environment Home Alone * ADLs Independent * Additional services required to return to the preadmission environment? No * Can the patient safely return to the preadmission environment? Yes * Has this patient been hospitalized within the prior 30 days at any hospital? No Coverage Notice Reviewer: [id number] Les King Notice Issued Date-Time: 01/21/2020 11:07 Notice Type: Patient Choice Letter Notice Delivered To: Patient Relationship to Patient: Gift Basket Packer Name: Delivery Method: HAND - Hand Delivered Kailyn Days: Prior Verbal Notification: Recipient Understood Notice: Yes Recipient Signature: Yes Med Rec Note Co-signed by Attending: Coverage Notice Comment: [facility] JOHNS IF NEEDED. Last DP export: 01/27/20 8:23 a Patient Name: NICHO WHITING Page [phone] at 0929 All edits/amendments must be made on the electronic document DICTATION DATE: 01/27/20928 QUALITY CONTROL TECH RAW MATERIALS: CAYDEN 01/27/20928 RPT#: [id number] DC DATE: STATUS: ADM IN [facility] [address] [place] [address] END OF REPORT
--- NOTE | 2020-01-28 08:37 | MORECARE ---
CASE MANAGEMENT DISCHARGE SUMMARY PATIENT: NICHO WHITING UNIT: [id number] ADM DATE: 01/20/20 AGE: 39 : [birth year] SEX: F ROOM/BED: D.2232 AUTHOR: ERIKADOC PHYSICIAN: REFERRING PHYSICIAN: MARIA ALEJANDRA ACKERMAN MD DATE OF SERVICE: 01/28/20 Discharge Plan Patient Name: NICHO WHITING Facility: [facility]:[place] : 1980 Planned Disposition: Anticipated Discharge Date: Discharge Date: 01/27/2020 Expected LOS: Initial Reviewer: [email or web address] Initial Review Date: 01/21/2020 Generated: 01/28/20 9:37 am Comments DCP- Discharge Planning Updated by [email or web address]: Vicky King on 01/27/20 8:[address] Patient Name: NICHO WHITING Admission Status: Elective Accout number: [id number] Admission Date: 01-20-2020 : 1980 Admission Diagnosis:ENCOUNTER FOR ATTENTION TO COLOSTOMY Attending: MARIA ALEJANDRA ACKERMAN Current LOS: 7 Anticipated DC Date: Planned Disposition: Primary Insurance: [place] [employer] [place] Discharge Planning Comments: [facility] CONTACTED AND REFERRAL FAXED. WAITING CALL BACK ON START DATE. CM TO FOLLOW AND ASSIST NEEDED. Cvt Rn: Vicky King DCP- Discharge Planning Updated by [email or web address]: Vicky King on 01/21/20 10:[address] Patient Name: NICHO WHITING Admission Status: Elective Accout number: [id number] Admission Date: 01-20-2020 : 1980 Admission Diagnosis: Attending: MARIA ALEJANDRA ACKERMAN Current LOS: 1 Anticipated DC Date: Planned Disposition: Primary Insurance: [place] [employer] Discharge Planning Comments: CM met with patient at bedside after explaining CM role and obtaining verbal consent. CM discussed availability / needs of home health, REHAB and medical equipment. PATIENT STATES DOESN'T KNOW IF SHE WILL NEED ANYTHING. STATES IF SHE DOES SHE WOULD LIKE TO USE [facility] . YOHANA SIGNED. CM TO FOLLOW AND ASSIST. Cvt Rn: Vicky King DCPIA - Discharge Planning Initial Assessment Updated by [email or web address]: Vicky King on 01/21/20 11:05 am * Is the patient Alert and Oriented? Yes * PCP TASHA * Pharmacy [facility] * Preadmission Environment Home Alone * ADLs Independent * Additional services required to return to the preadmission environment? No * Can the patient safely return to the preadmission environment? Yes * Has this patient been hospitalized within the prior 30 days at any hospital? No Coverage Notice Reviewer: [email or web address] Les King Notice Issued Date-Time: 01/21/2020 11:07 Notice Type: Patient Choice Letter Notice Delivered To: Patient Relationship to Patient: Tax Economist Name: Delivery Method: HAND - Hand Delivered Kailyn Days: Prior Verbal Notification: Recipient Understood Notice: Yes Recipient Signature: Yes Med Rec Note Co-signed by Attending: Coverage Notice Comment: [facility] JOHNS IF NEEDED. Last DP export: 01/27/20 8:29 a Patient Name: NICHO WHITING Page [phone] at 0837 All edits/amendments must be made on the electronic document DICTATION DATE: 01/28/20 0837 COLOR TECHNICIAN: CAYDEN 01/28/20 0837 RPT#: [id number] DC DATE:01/27/20 STATUS: DIS IN [facility] [address] [place] [address] END OF REPORT
== END 2020-01-27 11:00 | disposition home health service (06) | DRG 331 ==
LOC: D.MS 01-20 07:01 → D.SDCHOLD 01-20 07:01 → D.MS 01-20 17:14
PROVIDERS: Anesthesiology; Surgery; ADMIT Surgery; ATTEND Surgery
PROC: 0DNH0ZZ Release Cecum, Open Approach (ICD-10-PCS; 2020-01-20)
PROC: 0DNL0ZZ Release Transverse Colon, Open Approach (ICD-10-PCS; 2020-01-20)
PROC: 0DSP0ZZ Reposition Rectum, Open Approach (ICD-10-PCS; principal; 2020-01-20 09:30)
DX: Z43.3 Encounter for attention to colostomy (principal); N83.202 Unspecified ovarian cyst, left side; N73.6 Female pelvic peritoneal adhesions (postinfective); F41.9 Anxiety disorder, unspecified